=== PATIENT | female | born 1965 | race Caucasian/White ===

== ENCOUNTER → 2016-12-15 | Outpatient (CLI) | payer OTHER ==
[2013-07-18 17:33] VITALS: BP 151/97
[~2016-12-15] MED LIST: FROVA2.5 MG PO; MULTI VITAMINS1 TAB PO; PRILOSEC 20MG20 MG PO; VITAMIN D32000 I1 PO; WELLBUTRIN SR200 MG PO
== END ==
LOC: LAB 16:59
DX: R53.81 Other malaise (principal); R59.0 Localized enlarged lymph nodes; J30.1 Allergic rhinitis due to pollen

== ENCOUNTER → 2017-07-15 | Outpatient (CLI) | payer OTHER ==
[2013-07-18 17:33] VITALS: BP 151/97
== END ==
LOC: MAMMO 08:55 → RAD 09:15
DX: Z12.31 Encounter for screening mammogram for malignant neoplasm of breast (principal)

== ENCOUNTER → 2017-09-23 | Outpatient (CLI) | payer OTHER ==
[2013-07-18 17:33] VITALS: BP 151/97
[2017-09-23 09:20] LABS: ALBUMIN 3.9 g/dL (3.5-5.0); BUN/CREATININE RATIO 20.2 (6.0-26.0); CALCIUM 9.3 mg/dL (8.4-10.2); POTASSIUM 4.3 mmol/L (3.6-5.0); TOTAL BILIRUBIN 0.5 mg/dL (0.2-1.3); TOTAL PROTEIN 6.8 g/dL (6.3-8.2)
== END ==
LOC: LAB 08:32
PROVIDERS: Nurse Practitioner Family
DX: Z13.220 Encounter for screening for lipoid disorders (principal); I10 Essential (primary) hypertension; E66.09 Other obesity due to excess calories; Z88.5 Allergy status to narcotic agent; Z88.7 Allergy status to serum and vaccine